=== PATIENT | female | born 1945 ===

== ENCOUNTER 2017-02-21 08:54 | Inpatient (IN) | payer OTHER ==
[2017-02-21 09:05] VITALS: BMI 21.7
[2017-02-21] MEDS ORDERED: Sodium Chloride 0.9% 1,000 ML IV STA ×3 (09:32→18:24)
[2017-02-21 11:53] LABS: RBC URINE 1 /hpf (0-3); URINE BILIRUBIN NEGATIVE (NEGATIVE); URINE BLOOD NEGATIVE (NEGATIVE); URINE COLOR STRAW (YELLOW); URINE GLUCOSE (UA) NEG (Normal); URINE KETONE NEGATIVE (NEGATIVE); URINE PROTEIN NEGATIVE (NEGATIVE); URINE UROBILINOGEN 0.2-1.0 mg/dL (0.2-1.0); WBC URINE 2 /hpf (0-5)
[2017-02-21 11:54] LABS: URINE LEUKOCYTE ESTERASE NEGATIVE Leu/uL (Negative)
[2017-02-21 12:00] LABS: ALB/GLOB RATIO 1.6 (1.0-2.1); ALKALINE PHOSPHATASE 110 U/L (38-126); ALT/SGPT 39 U/L (9-52); AST/SGOT 31 U/L (14-36); BILIRUBIN,TOTAL 0.5 mg/dl (0.2-1.3); BLOOD UREA NITROGEN 13 mg/dl (7-17); CALCIUM 9.6 mg/dL (8.4-10.2); CARBON DIOXIDE 27 mmol/L (22-30); CHLORIDE 99 mmol/L (98-107); GFR AFRICAN-AMERICAN > 60; GLUCOSE,RANDOM 128 mg/dL (65-105); LIPASE 44 U/L (23-300); PARTIAL THROMBOPLASTIN TIME 35.3 Seconds (25.6-37.1); POTASSIUM 4.3 MMOL/L (3.6-5.0); SODIUM 141 mmol/l (132-148); TOTAL PROTEIN 7.8 G/DL (6.3-8.2)
[2017-02-21 12:14] LABS: BASO # 0.1 K/uL (0.0-0.2); BASO % 0.5 % (0.0-2.0); HEMATOCRIT 42.7 % (34.0-47.0); LYMPH % 15.6 % (20.0-40.0); MEAN CELL VOLUME 89.6 fl (81.0-99.0); MEAN CORPUSCULAR HEMOGLOBIN 29.1 pg (27.0-31.0); MEAN CORPUSCULAR HGB CONC 32.5 g/dL (33.0-37.0); MEAN PLATELET VOLUME 10.3 fl (7.2-11.7); MONO # 0.9 K/uL (0.0-0.8); MONO % 7.1 % (0.0-10.0); NEUT % 76.8 % (50.0-75.0); RED CELL DISTRIBUTION WIDTH 13.6 % (11.5-14.5)
--- NOTE | 2017-02-21 12:30 | RAD ---
HISTORY: chest pain/ r/o infiltrate COMPARISON: No prior. TECHNIQUE: Chest PA and lateral FINDINGS: LUNGS: No active pulmonary disease. PLEURA: No significant pleural effusion identified. No pneumothorax apparent. CARDIOVASCULAR: No radiographic findings to suggest acute or significant cardiovascular disease. OSSEOUS STRUCTURES: No significant abnormalities. VISUALIZED UPPER ABDOMEN: Normal. OTHER FINDINGS: None. IMPRESSION: No active disease.
--- NOTE | 2017-02-21 12:52 | US ---
HISTORY: upper abd pain COMPARISON: None. TECHNIQUE: Sonographic evaluation of the abdomen. FINDINGS: LIVER: Measures cm. Normal echogenicity of the liver parenchyma. No mass. No intrahepatic bile duct dilatation. GALLBLADDER: Unremarkable. No gallstones. COMMON BILE DUCT: Measures mm. No stones. No dilatation. PANCREAS: Unremarkable as visualized. No mass. No ductal dilatation. RIGHT KIDNEY: Measures cm. Normal echogenicity. No calculus, mass, or hydronephrosis. LEFT KIDNEY: Measures cm. Normal echogenicity. No calculus, mass, or hydronephrosis. SPLEEN: Normal in size and contour. No mass. AORTA: No aneurysmal dilatation. IVC: Unremarkable. OTHER FINDINGS: None. IMPRESSION: Unremarkable abdominal sonogram.
[2017-02-21 13:53] LABS: VENOUS BLOOD GAS BASE EXCESS 0.5 mmol/L (0.0-2.0); VENOUS BLOOD GAS PCO2 44 mmHg (40-60); VENOUS BLOOD PH 7.38 (7.32-7.43)
[2017-02-21] MEDS ORDERED: Sodium Chloride 0.9% 50 ML IV ONE (15:55)
[2017-02-21] MEDS ORDERED: Iohexol 300 100 ML IJ ONE (15:55)
--- NOTE | 2017-02-21 16:31 | ED PDOC ---
"HPI: Chest Pain Time Seen by Provider: 02/21/17 09:07 Chief Complaint (Nursing): Chest Pain Chief Complaint (Provider): chest pain History Per: Patient, [employer] Consultant History/Exam Limitations: no limitations Quality: Sharp Associated Symptoms: Nausea. denies: Dyspnea, Diaphoresis Modifying Factors: None Exacerbating Factors: None Alleviating Factors: None Additional Complaint(s): 72yo female arrives c/o epigastric pain sharp/burning radiating to left shoulder since last might, associated w mild nausea denies fever, cough or SOB. Denies prior history of similar pain. Denies melena, hematemesis or back pain. Past Medical History Reviewed: Historical Data, Nursing Documentation, Vital Signs Vital Signs: Last Vital Signs Temp 99.2 F 02/21/17 15:22 Pulse 81 02/21/17 17:43 Resp 16 02/21/17 13:33 BP 174/97 H 02/21/17 13:33 Pulse Ox 97 02/21/17 17:43 - Medical History PMH: HTN - Surgical History Surgical History: No Surg Hx - Family History Family History: States: Unknown Family Hx - Living Arrangements Living Arrangements: With Family - Social History Current smoker - smoking cessation education provided: No Alcohol: Occasional - Immunization History Hx Tetanus Toxoid Vaccination: No Hx Influenza Vaccination: No Hx Pneumococcal Vaccination: No - Home Medications Home Medications: Ambulatory Orders Medication Instructions Recorded Clonazepam 0.5 mg PO HS 08/18/16 Enalapril Maleate [Vasotec] 20 mg PO DAILY 02/21/17 Melatonin [Melatonin] 10 mg PO HS 02/21/17 - Allergies Allergies/Adverse Reactions: Allergies Allergy/AdvReac Type Severity Reaction Status Date / Time dust Allergy Uncoded 08/18/16 15:29 Review of Systems ROS Statement: Except As Marked, All Systems Reviewed And Found Negative Constitutional: Negative for: Fever, Chills Cardiovascular: Positive for: Chest Pain. Negative for: Palpitations Respiratory: Negative for: Cough Gastrointestinal: Positive for: Nausea, Abdominal Pain. Negative for: Vomiting , Diarrhea Genitourinary Female: Negative for: Dysuria, Frequency Musculoskeletal: Negative for: Neck Pain, Shoulder Pain Skin: Negative for: Rash, Lesions, Jaundice Neurological: Negative for: Weakness, Numbness, Dizziness Psych: Negative for: Anxiety Physical Exam - Reviewed Nursing Documentation Reviewed: Yes Vital Signs Reviewed: Yes - Physical Exam Appears: Positive for: Well, Non-toxic, No Acute Distress Head Exam: Positive for: ATRAUMATIC, NORMAL INSPECTION, NORMOCEPHALIC Skin: Positive for: Normal Color, Warm, DRY Eye Exam: Positive for: EOMI, Normal appearance, PERRL ENT: Positive for: Normal ENT Inspection Neck: Positive for: Normal, Painless ROM Cardiovascular/Chest: Positive for: Regular Rate, Rhythm Respiratory: Positive for: CNT, Normal Breath Sounds Gastrointestinal/Abdominal: Positive for: Bowel Sounds, Soft, Tenderness (+ epigastric tenderness, neg murphys, neg mcburneys tenderness). Negative for: Guarding, Rebound Back: Positive for: Normal Inspection Extremity: Positive for: Normal ROM Neurologic/Psych: Positive for: Alert, Oriented - Laboratory Results Result Diagrams: 02/21/17 09:30 02/21/17 09:30 - ECG ECG: Positive for: Interpreted By Me ECG Rhythm: Positive for: Normal QRS, Normal ST Segment, Nonspecific Changes Rate: 81 O2 Sat by Pulse Oximetry: 97 Pulse Ox Interpretation: Normal - Radiology X-Ray: Read By Radiologist X-Ray Interpretation: No Acute Disease - CT Scan/US US abd Other Rad Studies (CT/US): Read By Radiologist Other Rad Interpretation: normal Abd US Medical Decision Making Medical Decision Making: Workup for atypical chest pain/ epigastric pain initiated. lab work revealed mild luekocytosis. LFTs/ chem unremarkable UA unremarkable US abdomen unrevealing While in ED, patient spiked fever, VBG w lactate revealed lactate 2.[address] abd pelv ordered FINDINGS: Lungs: No focal consolidation. Pleural space: Dependent changes in the lung bases. No significant pleural effusions are identified. No pneumothorax. Heart: Unremarkable. No cardiomegaly. No significant pericardial effusion. Bones/joints: Unremarkable. No acute fracture. No dislocation. Soft tissues: Unremarkable. Vasculature: Atherosclerotic calcification of the aorta. Coronary arterial calcifications. No thoracic aortic aneurysm. Lymph nodes: Unremarkable. No enlarged lymph nodes. IMPRESSION: No focal consolidation. Thank you for allowing us to participate in the care of your patient. REYMUNDO RITTER | Preliminary Radiology Report INSURANCE CLAIMS CLERK (QA) DISCREPANCY? If there is a discrepancy between the preliminary and final interpretation, please notify [facility] via [email or web address]. If you do not have access to our QA portal, call our QA team at [phone] CONFIDENTIALITY STATEMENT This report is intended only for the use of the referring physician, and only in accordance with law, If you received this in error, call [phone] Page 2 of 2 Dictated and Authenticated by: Ann Fleming MD 02/21/2017 5:36 PM Eastern Time ( & [place]) ABDOMEN: Liver: Unremarkable. Gallbladder and bile ducts: Unremarkable. No calcified stones. No ductal dilation. Pancreas: Unremarkable. No ductal dilation. Spleen: Unremarkable. No splenomegaly. Adrenals: Mild bilateral adrenal thickening Kidneys and ureters: Unremarkable. No hydronephrosis. Stomach and bowel: Apparent thickening of the distal transverse, descending and sigmoid colon, suspicious for infectious/inflammatory colitis versus ischemic colitis. Correlate clinically. Scattered diverticulosis of the colon. No evidence of diverticulitis. Appendix: No findings to suggest acute appendicitis. PELVIS: Bladder: Partially contracted. Reproductive: Unremarkable as visualized. ABDOMEN and PELVIS: Intraperitoneal space: Unremarkable. No free air. No drainable fluid collection. Bones/joints: No acute fracture. No dislocation. Soft tissues: Unremarkable. Vasculature: Atherosclerotic calcifications. No abdominal aortic aneurysm. Lymph nodes: Unremarkable. No enlarged lymph nodes. IMPRESSION: 1. Apparent thickening of the distal transverse, descending and sigmoid colon, suspicious for infectious/inflammatory colitis versus ischemic colitis. Correlate clinically. 2. Scattered diverticulosis of the colon. No evidence of diverticulitis. Thank you for allowing us to participate in the care of your patient. Dictated and Authenticated by: Ann Fleming MD 02/21/2017 5:40 PM Eastern Time ([place] & [place]) Given qualifies for severe sepsis, extreme of age, admit medicine director rehabilitation program for Abx and IVF. Dr Vernon director rehabilitation program medicine (MAINE Monique not at [facility]). Disposition - Clinical Impression Clinical Impression: Severe sepsis, Colitis, Chest pain - Patient ED Disposition Is Patient to be Admitted: Yes Counseled Patient/Family Regarding: Studies Performed, Diagnosis, Need For Followup - Disposition Disposition Time: 16:00 Condition: FAIR Forms: [employer] (Lithuanian) - Pt Status Changed To: Hospital Disposition Of: Inpatient - Admit Certification Admit to Inpatient:: After my assessment, the patient will require hospitalization for at least two midnights. This is because of the severity of symptoms shown, intensity of services needed, and/or the medical risk in this patient being treated as an outpatient. - POA Present On Arrival: None"
[2017-02-21] MEDS ORDERED: Piperacillin/Tazobact 4.5 GM in Sodium Chloride 0.9% 100 ML IVPB STA (17:44)
[2017-02-21 18:27] LABS: VENOUS BLOOD GAS PCO2 48 mmHg (40-60); VENOUS BLOOD PH 7.36 (7.32-7.43)
--- NOTE | 2017-02-21 18:34 | CT ---
PROCEDURE: CT Chest, Abdomen and Pelvis with intravenous contrast HISTORY: lower chest and upper abd pain COMPARISON: None. TECHNIQUE: IV dose administered: 95 mL of Omnipaque 300. Axial and reformatted coronal and sagittal CT images of the chest abdomen and pelvis were obtained after IV contrast administration. Radiation dose: Total exam DLP = 816.61 mGy-cm. This CT exam was performed using one or more of the following dose reduction techniques: Automated exposure control, adjustment of the mA and/or kV according to patient size, and/or use of iterative reconstruction technique. FINDINGS: CT CHEST WITH CONTRAST: LUNGS: Small linear opacities at the lung bases likely atelectasis. Otherwise no evidence of pneumonia or mass lesion in the lungs. MEDIASTINUM: Diffuse atherosclerotic disease seen in the aortic arch. No evidence of aneurysm or dissection in the the aorta. The heart is upper normal limit in size. The main pulmonary artery is normal in caliber. No evidence of significant lymphadenopathy. Mild diffuse esophageal mucosal thickening seen. LYMPH NODES: Unremarkable. PLEURA: Trace left pleural effusion is noted of uncertain etiology. BONES: Unremarkable. OTHER FINDINGS: None. CT ABDOMEN AND PELVIS: LIVER: Mild cardiomegaly is seen. GALLBLADDER AND BILE DUCTS: Unremarkable. PANCREAS: Unremarkable. No gross lesion or ductal dilatation. SPLEEN: Unremarkable. ADRENALS: Unremarkable. No mass. KIDNEYS AND URETERS: Unremarkable. No hydronephrosis. No solid mass. VASCULATURE: Unremarkable. No aortic aneurysm. BOWEL: Unremarkable. No obstruction. No gross mural thickening. Diffuse gastric gait wall/mucosal thickening is noted. Correlate clinically for gastritis. The stomach is mildly distended contains air-fluid level. Few scattered colonic diverticulosis seen without evidence APPENDIX: Of diverticulitis. PERITONEUM: Unremarkable. No free fluid. No free air. LYMPH NODES: Unremarkable. No enlarged lymph nodes. BLADDER: Mild urinary bladder wall thickening is noted. REPRODUCTIVE: Uterus is mildly enlarged for the patient's age. The left adnexa is prominent in size. . BONES: No acute fracture. OTHER FINDINGS: None. IMPRESSION: Diffuse gastric wall thickening. Correlate clinically for gastritis. No evidence of acute pathology in the chest. Trace left pleural effusion and pleural thickening noted of uncertain etiology. Mildly enlarged uterus for the patient's age.
[2017-02-21] MEDS: Dextrose 5%/0.9% NS 1,000 ML IV SCH (19:42)
[2017-02-21] MEDS ORDERED: metroNIDAZOLE 500mg/100ml NS 100 ML IVPB SCH (19:45)
--- NOTE | 2017-02-21 20:42 | CP.PCM.PN ---
Subjective - Date & Time of Evaluation Date of Evaluation: 02/21/17 Time of Evaluation: 20:38 - Subjective Subjective: I D NOTE PATIENT EXAMINED ,CHART REVIEWED ANTIBIOTICS ORDERED ,FULL GONSULT DICTATED Objective - Vital Signs/Intake and Output Vital Signs (last 24 hours): Temp Pulse Resp BP Pulse Ox 99.1 F 92 H 16 151/87 H 100 02/21/17 19:04 02/21/17 18:21 02/21/17 18:21 02/21/17 18:21 02/21/17 18:21 - Medications Medications: Current Medications Acetaminophen (Tylenol 650 Mg Supp) 650 mg NH Q4 PRN PRN Reason: fever Hydromorphone HCl (Dilaudid) 1 mg IVP Q4 PRN PRN Reason: Pain, moderate (4-7) Dextrose/Sodium Chloride (Dextrose 5%/0.9% Ns 1000 Ml) 1,000 mls @ 125 mls/hr IV .Q8H ISAAC Stop: 02/22/17 19:21 Last Admin: 02/21/17 19:42 Dose: 125 mls/hr Piperacillin Sod/Tazobactam (Sod 3.375 gm/ Sodium Chloride) 100 mls @ 100 mls/ hr IVPB Q8 ISAAC Clindamycin Phosphate 600 mg/ (Sodium Chloride) 54 mls @ 54 mls/hr IVPB Q8 ISAAC Pantoprazole Sodium (Protonix Inj) 40 mg IVP DAILY ISAAC - Labs Labs: PT 11.1 Seconds (9.8-13.1) 02/21/17 09:30 INR 1.1 (0.9-1.2) 02/21/17 09:30 APTT 35.3 Seconds (25.6-37.1) 02/21/17 09:30
[2017-02-21] MEDS: Clindamycin 600 MG in Sodium Chloride 0.9% 100 ML IVPB SCH (21:00)
[2017-02-21 21:24] LABS: AMYLASE 81 U/L (30-110); LIPASE 29 U/L (23-300)
[2017-02-22] MEDS ORDERED: Piperacillin/Tazobact 4.5 GM in Sodium Chloride 0.9% 100 ML IVPB SCH (01:00)
[2017-02-22] MEDS: Clindamycin 600 MG in Sodium Chloride 0.9% 100 ML IVPB SCH ×2 (01:03→08:42)
--- NOTE | 2017-02-22 01:13 | CON ---
INFECTIOUS DISEASE CONSULTATION HISTORY OF PRESENT ILLNESS: The patient is a 72-year-old female who came to the emergency room early this morning because of severe abdominal pain mostly located in the epigastric area with a burning feeling and radiating to the left shoulder. She said that she has had the pain for about a day. She had some nausea also and prior to the ER, denied any fever, cough, or shortness of breath. While in the ER she noted that she developed some chills and sweats, and her temperature was noted to be 102. There was no history of dark stools, tarry stools, or any hematemesis. Denies any cough or shortness of breath. The patient has a past medical history of hypertension, no history of surgery, no history of cholecystitis. Does not smoke, but has a history of occasional alcohol use. PHYSICAL EXAMINATION: GENERAL: The patient is alert, cooperative and oriented to time and place. She states she has improved while she has been in the emergency room, but she has also received some narcotics for the pain, I think morphine. HEENT: Within normal limits other than the tongue being dry. NECK: Supple. LUNGS: Clear. No abnormal breath sounds. HEART: Regular sinus rhythm. ABDOMEN: Positive bowel sounds. She does have some epigastric tenderness and minimal right upper quadrant tenderness. There is no rebound. EXTREMITIES: No CCE, although she has pain on the Achilles tendon areas on both legs and states that she walks a lot. EKG is essentially within normal limits. Chest x-ray is within normal limits. CT scan of the chest, abdomen and pelvis was noted to have diffuse gastric wall thickening. No acute pathology in the chest and there might be a trace left pleural effusion and pleural thickening of uncertain etiology, mildly enlarged uterus for the patient's age. LABORATORY DATA: White count is 13. There is a mild left shift. Chemistry: Random glucose 128, GFR is greater than 60, creatinine 0.9, BUN 13. Sodium 141, potassium 4.3, chloride 99, troponin so far are normal, lipase is within normal limits. PRESENT DIAGNOSES: Abdominal pain, sepsis, rule out gastritis. Even though CT scan was negative, rule out the possibility of biliary tract disease. I have ordered an extra urinalysis and serum amylase, lipase and procalcitonin level. Have also lactate elevated over 2. I have started her on Zosyn 3.375 IV piggyback q. 8 and clindamycin 600 mg IV piggyback q. 8, Flagyl was not available intravenously and did not order it orally. Wale Briceño MD NIYA
[2017-02-22] MEDS: Piperacillin/Tazobact 3.375 GM in Sodium Chloride 0.9% 100 ML IVPB SCH ×2 (01:58→08:44)
[2017-02-22 03:04] LABS: RBC URINE 1 /hpf (0-3); URINE BILIRUBIN NEGATIVE (NEGATIVE); URINE BLOOD NEGATIVE (NEGATIVE); URINE COLOR STRAW (YELLOW); URINE GLUCOSE (UA) NEG (Normal); URINE KETONE NEGATIVE (NEGATIVE); URINE LEUKOCYTE ESTERASE NEG Leu/uL (Negative); URINE PROTEIN NEGATIVE (NEGATIVE); URINE UROBILINOGEN 0.2-1.0 mg/dL (0.2-1.0); WBC URINE 2 /hpf (0-5)
[2017-02-22] MEDS: Dextrose 5%/0.9% NS 1,000 ML IV SCH (04:32)
[2017-02-22 05:47] LABS: BASO % 0.4 % (0.0-2.0); EOS % 0.2 % (0.0-4.0); HEMATOCRIT 37.1 % (34.0-47.0); LYMPH # 1.7 K/uL (1.0-4.3); LYMPH % 17.2 % (20.0-40.0); MEAN CELL VOLUME 89.6 fl (81.0-99.0); MEAN CORPUSCULAR HEMOGLOBIN 29.5 pg (27.0-31.0); MEAN CORPUSCULAR HGB CONC 32.9 g/dL (33.0-37.0); MEAN PLATELET VOLUME 10.1 fl (7.2-11.7); MONO # 0.9 K/uL (0.0-0.8); MONO % 9.6 % (0.0-10.0); NEUT % 72.6 % (50.0-75.0); WHITE BLOOD COUNT 9.6 K/uL (4.8-10.8)
[2017-02-22 06:02] LABS: ALB/GLOB RATIO 1.4 (1.0-2.1); ALKALINE PHOSPHATASE 67 U/L (38-126); ALT/SGPT 29 U/L (9-52); AST/SGOT 24 U/L (14-36); BILIRUBIN,TOTAL 0.9 mg/dl (0.2-1.3); BLOOD UREA NITROGEN 9 mg/dl (7-17); CALCIUM 8.3 mg/dL (8.4-10.2); CARBON DIOXIDE 21 mmol/L (22-30); CHLORIDE 106 mmol/L (98-107); GFR AFRICAN-AMERICAN > 60; GLUCOSE,RANDOM 144 mg/dL (65-105); POTASSIUM 3.9 MMOL/L (3.6-5.0); SODIUM 138 mmol/l (132-148); TOTAL PROTEIN 6.5 G/DL (6.3-8.2)
--- NOTE | 2017-02-22 08:45 | CARD ---
APPROVED REPORT EKG Measurement Heart [id number] HI [id number] <Conclusion> Normal sinus rhythm Biatrial enlargement Abnormal ECG
[2017-02-22 09:08] VITALS: O2SAT 98
--- NOTE | 2017-02-22 09:48 | CP.PCM.HP ---
History of Present Illness - History of Present Illness History of Present Illness: This is a 72 y/o female admitted from yesterday through the ER for acute epigastric pains, Noted elevated LDH and WBC. Has no significant medical hx except for HTN. She denies any fever. Past Patient History - Past Medical History & Family History Past Medical History?: Yes - Past Social History Smoking Status: Never Smoked - CARDIAC Hx Cardiac Disorders: Yes (HTN) - MUSCULOSKELETAL/RHEUMATOLOGICAL Hx Falls: No - GASTROINTESTINAL Hx Gastroesophageal Reflux: Yes - PSYCHIATRIC Hx Substance Use: No - SURGICAL HISTORY Hx Surgeries: No - ANESTHESIA Hx Anesthesia: No Meds Allergies/Adverse Reactions: Allergies Allergy/AdvReac Type Severity Reaction Status Date / Time dust Allergy Uncoded 08/18/16 15:29 Results - Vital Signs Recent Vital Signs: Last Vital Signs Temp 98.3 F 02/22/17 08:00 Pulse 83 02/22/17 08:00 Resp 24 02/22/17 08:00 BP 144/73 02/22/17 08:00 Pulse Ox 98 02/22/17 08:00 - Labs Result Diagrams: 02/22/17 04:45 02/22/17 04:45 Labs: Laboratory Results - last 24 hr 02/21/17 02/21/17 02/21/17 18:21 18:38 20:55 WBC RBC Hgb Hct MCV MCH MCHC RDW Plt Count MPV Neut % (Auto) Lymph % (Auto) [place] % (Auto) Eos % (Auto) Baso % (Auto) Neut # Lymph # [place] # Eos # Baso # ESR pO2 24 L VBG pH 7.36 VBG pCO2 48 VBG HCO3 24.1 VBG Total CO2 28.6 H VBG O2 Sat (Calc) 42.3 VBG Base Excess 1.0 VBG Potassium 4.5 Sodium 134.0 Chloride 100.0 Glucose 167 H Lactate 2.2 H FiO2 21.0 Blood Gas Comments Lactate 2.2 Crit Value Called To jason Aquino do Crit Value Called By 203 Crit Value Read Back Y Blood Gas Notified Time 1826 Potassium Carbon Dioxide Anion Gap BUN Creatinine Est GFR ( Amer) Est GFR (Non-Af Amer) Random Glucose Calcium Total Bilirubin AST ALT Alkaline Phosphatase Troponin I < 0.0120 Total Protein Albumin Globulin Albumin/Globulin Ratio Amylase 81 Lipase 29 Venous Blood Potassium 4.5 02/22/17 02/22/17 04:45 04:45 WBC 9.6 RBC 4.14 Hgb 12.2 Hct 37.1 MCV 89.6 MCH 29.5 MCHC 32.9 L RDW 14.0 Plt Count 221 MPV 10.1 Neut % (Auto) 72.6 Lymph % (Auto) 17.2 L Cit[place] % (Auto) 9.6 Eos % (Auto) 0.2 Baso % (Auto) 0.4 Neut # 7.0 Lymph # 1.7 Citrus # 0.9 H Eos # 0.0 Baso # 0.0 ESR 38 H pO2 VBG pH VBG pCO2 VBG HCO3 VBG Total CO2 VBG O2 Sat (Calc) VBG Base Excess VBG Potassium Sodium 138 Chloride 106 Glucose Lactate FiO2 Blood Gas Comments Crit Value Called To Crit Value Called By Crit Value Read Back Blood Gas Notified Time Potassium 3.9 Carbon Dioxide 21 L Anion Gap 15 BUN 9 Creatinine 0.8 Est GFR ( Amer) > 60 Est GFR (Non-Af Amer) > 60 Random Glucose 144 H Calcium 8.3 L Total Bilirubin 0.9 AST 24 ALT 29 Alkaline Phosphatase 67 Troponin I Total Protein 6.5 Albumin 3.7 Globulin 2.7 Albumin/Globulin Ratio 1.4 Amylase Lipase Venous Blood Potassium
--- NOTE | 2017-02-22 10:01 | CP.PCM.DIS ---
Provider - Provider Date of Admission: 02/21/17 17:53 Attending physician: Faustino Vernon MD Time Spent in preparation of Discharge (in minutes): 30 Hospital Course - Lab Results Lab Results: Most Recent Lab Values WBC 9.6 K/uL (4.8-10.8) 02/22/17 04:45 RBC 4.14 Mil/uL (3.80-5.20) 02/22/17 04:45 Hgb 12.2 g/dL (12.0-16.0) 02/22/17 04:45 Hct 37.1 % (34.0-47.0) 02/22/17 04:45 MCV 89.6 fl (81.0-99.0) 02/22/17 04:45 MCH 29.5 pg (27.0-31.0) 02/22/17 04:45 MCHC 32.9 g/dL (33.0-37.0) L 02/22/17 04:45 RDW 14.0 % (11.5-14.5) 02/22/17 04:45 Plt Count 221 K/uL (130-400) 02/22/17 04:45 MPV 10.1 fl (7.2-11.7) 02/22/17 04:45 Neut % (Auto) 72.6 % (50.0-75.0) 02/22/17 04:45 Lymph % (Auto) 17.2 % (20.0-40.0) L 02/22/17 04:45 [place] % (Auto) 9.6 % (0.0-10.0) 02/22/17 04:45 Eos % (Auto) 0.2 % (0.0-4.0) 02/22/17 04:45 Baso % (Auto) 0.4 % (0.0-2.0) 02/22/17 04:45 Neut # 7.0 K/uL (1.8-7.0) 02/22/17 04:45 Lymph # 1.7 K/uL (1.0-4.3) 02/22/17 04:45 [place] # 0.9 K/uL (0.0-0.8) H 02/22/17 04:45 Eos # 0.0 K/uL (0.0-0.7) 02/22/17 04:45 Baso # 0.0 K/uL (0.0-0.2) 02/22/17 04:45 ESR 38 mm/hr (0-30) H 02/22/17 04:45 PT 11.1 Seconds (9.8-13.1) 02/21/17 09:30 INR 1.1 (0.9-1.2) 02/21/17 09:30 APTT 35.3 Seconds (25.6-37.1) 02/21/17 09:30 pO2 24 mm/Hg (30-55) L 02/21/17 18:21 VBG pH 7.36 (7.32-7.43) 02/21/17 18:21 VBG pCO2 48 mmHg (40-60) 02/21/17 18:21 VBG HCO3 24.1 mmol/L 02/21/17 18:21 VBG Total CO2 28.6 mmol/L (22-28) H 02/21/17 18:21 VBG O2 Sat (Calc) 42.3 % (40-65) 02/21/17 18:21 VBG Base Excess 1.0 mmol/L (0.0-2.0) 02/21/17 18:21 VBG Potassium 4.5 mmol/L (3.6-5.2) 02/21/17 18:21 Sodium 134.0 mmol/L (132-148) 02/21/17 18:21 Chloride 100.0 mmol/L (98-107) 02/21/17 18:21 Glucose 167 mg/dL (65-105) H 02/21/17 18:21 Lactate 2.2 mmol/L (0.7-2.1) H 02/21/17 18:21 FiO2 21.0 % 02/21/17 18:21 Blood Gas Comments Lactate 2.2 02/21/17 18:21 Crit Value Called To jason Aquino do 02/21/17 18:21 Crit Value Called By 203 02/21/17 18:21 Crit Value Read Back Y 02/21/17 18:21 Blood Gas Notified Time 18202/21/17 18:21 Sodium 138 mmol/l (132-148) 02/22/17 04:45 Potassium 3.9 MMOL/L (3.6-5.0) 02/22/17 04:45 Chloride 106 mmol/L (98-107) 02/22/17 04:45 Carbon Dioxide 21 mmol/L (22-30) L 02/22/17 04:45 Anion Gap 15 (10-20) 02/22/17 04:45 BUN 9 mg/dl (7-17) 02/22/17 04:45 Creatinine 0.8 mg/dL (0.7-1.2) 02/22/17 04:45 Est GFR ( Amer) > 60 02/22/17 04:45 Est GFR (Non-Af Amer) > 60 02/22/17 04:45 Random Glucose 144 mg/dL (65-105) H 02/22/17 04:45 Calcium 8.3 mg/dL (8.4-10.2) L 02/22/17 04:45 Total Bilirubin 0.9 mg/dl (0.2-1.3) 02/22/17 04:45 AST 24 U/L (14-36) 02/22/17 04:45 ALT 29 U/L (9-52) 02/22/17 04:45 Alkaline Phosphatase 67 U/L (38-126) 02/22/17 04:45 Troponin I < 0.0120 ng/mL (0.00-0.120) 02/21/17 18:38 Total Protein 6.5 G/DL (6.3-8.2) 02/22/17 04:45 Albumin 3.7 g/dL (3.5-5.0) 02/22/17 04:45 Globulin 2.7 gm/dL (2.2-3.9) 02/22/17 04:45 Albumin/Globulin Ratio 1.4 (1.0-2.1) 02/22/17 04:45 Amylase 81 U/L (30-110) 02/21/17 20:55 Lipase 29 U/L (23-300) 02/21/17 20:55 Venous Blood Potassium 4.5 mmol/L (3.6-5.2) 02/21/17 18:21 Urine Color Straw (YELLOW) 02/21/17 13:40 Urine Clarity Clear (Clear) 02/21/17 13:40 Urine pH 7.0 (5.0-8.0) 02/21/17 13:40 Ur Specific [place] 1.013 (1.003-1.030) 02/21/17 13:40 Urine Protein Negative mg/dL (NEGATIVE) 02/21/17 13:40 Urine Glucose (UA) Neg mg/dL (Normal) 02/21/17 13:40 Urine Ketones Negative mg/dL (NEGATIVE) 02/21/17 13:40 Urine Blood Negative (NEGATIVE) 02/21/17 13:40 Urine Nitrate Negative (NEGATIVE) 02/21/17 13:40 Urine Bilirubin Negative (NEGATIVE) 02/21/17 13:40 Urine Urobilinogen 0.2-1.0 mg/dL (0.2-1.0) 02/21/17 13:40 Ur Leukocyte Esterase Neg Osito/uL (Negative) 02/21/17 13:40 Urine RBC (Auto) 1 /hpf (0-3) 02/21/17 13:40 Urine Microscopic WBC 2 /hpf (0-5) 02/21/17 13:40 Ur Squamous Epith Cells < 1 /hpf (0-5) 02/21/17 09:10 - Hospital Course Hospital Course: This is a 72 y/o female admitted for epigastric pain. Noted elevated LDH and WBC. She was placed in ICU as he met sepsis criteria. She was started on iv protonix and antibiotics and did very well. repeat CBC was normal CT scan showed gastritis and diverticuloses. Dr Briceño saw the patient and agreed with discharge on augmentin and flagyl and protonix. She was discharged in stable condition and advised follow up with PMD. Discharge Exam - Head Exam Head Exam: ATRAUMATIC, NORMAL INSPECTION, NORMOCEPHALIC - Eye Exam Eye Exam: Normal appearance - Respiratory Exam Respiratory Exam: NORMAL BREATHING PATTERN - Cardiovascular Exam Cardiovascular Exam: REGULAR RHYTHM - GI/Abdominal Exam GI & Abdominal Exam: Normal Bowel Sounds, Tenderness - Neurological Exam Neurological exam: CN II-XII Intact, Oriented x3 - Psychiatric Exam Psychiatric exam: Normal Mood Discharge Plan - Follow Up Plan Condition: FAIR Disposition: HOME/ ROUTINE Additional Instructions: will send on protonix flagyl and augmentin follow up with PMD
[2017-02-22 12:27] VITALS: BP 153/80; PULSE 74; RESP 21; TEMP 98.4
== END 2017-02-22 14:36 | disposition home or self-care (01) | DRG 872 ==
LOC: H.ER 08:54 → H.ERHOLD 17:53 → H.ICU/CCU 23:23
PROVIDERS: ADMIT Family Medicine; ATTEND Family Medicine
DX: A41.9 Sepsis, unspecified organism (principal); I10 Essential (primary) hypertension; K29.70 Gastritis, unspecified, without bleeding; K57.90 Diverticulosis of intestine, part unspecified, without perforation or abscess without bleeding; R65.20 Severe sepsis without septic shock